=== PATIENT | female | born 1990 ===

== ENCOUNTER → 2020-03-24 | Outpatient (CLI) | payer OTHER ==
[2020-03-25 22:08] LABS: CHLAMYDIA TRACHOMATIS, NAA Negative (Negative); NEISSERIA GONORRHOEAE, NAA Negative (Negative)
== END | disposition home or self-care (01) ==
LOC: LAB 15:03 → LAB SHORT 15:03
PROVIDERS: Obstetrics & Gynecology
DX: Z34.01 Encounter for supervision of normal first pregnancy, first trimester (principal)
CPT/HCPCS: 87491; 87591

== ENCOUNTER → 2020-10-31 | Outpatient (CLI) | payer OTHER ==
[~2020-10-31] MED LIST: IBUP800 PO; PRENATAL TABLE1 EAC2; [UNRECOGNIZED DRUG - OTHER] PO
== END ==
LOC: LAB SHORT 16:12
DX: O26.93 Pregnancy related conditions, unspecified, third trimester (principal); Z3A.36 36 weeks gestation of pregnancy
CPT/HCPCS: 87081; 87150

== ENCOUNTER 2020-11-22 11:40 | Inpatient (IN) | payer OTHER ==
[~2020-11-22] VITALS: Ht 162.6 cm; Wt 89.9 kg
[2020-11-22] MEDS ORDERED: [UNRECOGNIZED DRUG - OTHER] PO (12:37)
[2020-11-22] MEDS ORDERED: PRENATAL TABLE1 EAC2 (12:37)
[2020-11-22 12:45] LABS: BASOPHILS ABSOLUTE AUTO 0.02 K/mm3 (0.00-0.23); BASOPHILS PERCENT AUTO 0 % (0-2); EOSINOPHILS ABSOLUTE AUTO 0.09 K/mm3 (0.00-0.68); EOSINOPHILS PERCENT AUTO 1 % (0-6); Hematocrit 39.1 % (33.0-51.0); Hemoglobin 13.2 g/dL (11.5-16.0); IMMATURE GRAN ABSOLUTE AUTO 0.03 K/mm3 (0.00-0.10); IMMATURE GRAN PERCENT AUTO 0 % (0-1); LYMPHOCYTES PERCENT AUTO 17 % (21-46); MONOCYTES ABSOLUTE AUTO 0.62 K/mm3 (0.16-1.47); MONOCYTES PERCENT AUTO 6 % (4-13); Mean Corpuscular HGB 28.2 pg (26.0-34.0); Mean Corpuscular HGB Conc 33.8 g/dL (31.5-36.5); Mean Corpuscular Volume 84 fL (80-100); Mean Platelet Volume 9.5 fL (9.1-12.4); NEUTROPHILS ABSOLUTE AUTO 7.86 K/mm3 (1.96-9.15); NEUTROPHILS PERCENT AUTO 76 % (41-73); Platelet Count 270 K/mm3 (150-400); RDW Coefficient Variation 13.8 % (11.7-14.2); RDW Standard Deviation 42.2 fL (35.1-46.3); Red Blood Cell Count 4.68 M/mm3 (3.80-5.20); White Blood Cell Count 10.32 K/mm3 (4.00-11.30)
[2020-11-22 12:59] LABS: Influenza A, PCR Negative (NEGATIVE); Influenza B, PCR Negative (NEGATIVE); Resp Syncytial Virus, PCR Negative (NEGATIVE); SARS-Cov-2 (COVID-19) PCR, MMC Negative (NEGATIVE)
[2020-11-22] MEDS ORDERED: IBUP800 PO (17:19)
[2020-11-23 05:17] LABS: BASOPHILS ABSOLUTE AUTO 0.02 K/mm3 (0.00-0.23); BASOPHILS PERCENT AUTO 0 % (0-2); EOSINOPHILS PERCENT AUTO 0 % (0-6); Hematocrit 34.3 % (33.0-51.0); Hemoglobin 11.6 g/dL (11.5-16.0); IMMATURE GRAN PERCENT AUTO 1 % (0-1); LYMPHOCYTES ABSOLUTE AUTO 1.53 K/mm3 (0.84-5.20); LYMPHOCYTES PERCENT AUTO 9 % (21-46); MONOCYTES ABSOLUTE AUTO 1.06 K/mm3 (0.16-1.47); MONOCYTES PERCENT AUTO 6 % (4-13); Mean Corpuscular HGB 28.6 pg (26.0-34.0); Mean Corpuscular HGB Conc 33.8 g/dL (31.5-36.5); Mean Corpuscular Volume 85 fL (80-100); Mean Platelet Volume 9.6 fL (9.1-12.4); NEUTROPHILS PERCENT AUTO 85 % (41-73); Platelet Count 230 K/mm3 (150-400); RDW Coefficient Variation 13.9 % (11.7-14.2); RDW Standard Deviation 42.6 fL (35.1-46.3); Red Blood Cell Count 4.05 M/mm3 (3.80-5.20); White Blood Cell Count 18.01 K/mm3 (4.00-11.30)
--- NOTE | 2020-11-23 09:22 | NUR ---
RN/POLLO ROUNDED TO HELP W/ . NB IS ALERT AND WAKE, NOT SHOWING INTEREST IN FEEDING. NB WILL LATCH FOR A FEW SECONDS AND QUICKLY STOPS. ORAL ASSESSMENT; FRENULUM UNDER TOUNGE IS THICK, WHEN NB STICKS OUT TONGUE IT DIPS IN AT THE TIP AND LOOKS LIKE A HEART. NB IS ABLE TO ELEVATE TONGUE TO ROOF OF MOUTH, STRETCH OVER LOWER GUM LINE, AND MOVE SIDE TO SIDE. INSTRUCT/DEMO CORRECT POSITIONING AND LATCHING. INSTRUCT/DEMO ORAL EXERCISES TO HELP COORDINATE SUCK. WILL ROUND AGAIN TODAY. INSTRUCTED ON FREQUENCY OF LATCHING, SUPPLY/DEMAND SYSTEM OF BREASTMILK. INSTRUCT/DEMO HAND EXPRESSION OF COLOSTRUM. REPORT GIVEN TO FLOOR RN. INSTRUCTED RN TO HAVE PT START PUMPING TO HELP BRING IN MILK SUPPLY.
--- NOTE | 2020-11-23 16:15 | NUR ---
RN/LC ROUNDED TO HELP W/ . NB CONTINUES TO FEED POOR TO FAIR. INSTRUCT/DEMO PUMP USE AND SETTINGS. INSTRUCTED ON FREQUENCY OF PUMPING.
--- NOTE | 2020-11-24 09:09 | NUR ---
DR. GARCIA NOTIFIED OF WBCS. NO NEW ORDERS AT THIS TIME. WILL DISCHARGE TODAY.
--- NOTE | 2020-11-24 10:01 | NUR ---
DISCHARGE EDUCATED MOTHER AND FATHER OF MATERNAL + DISCHARGE TEACHING AND BOTH VERBALIZED AN UNDERSTANDING. NO HARD RX WRITTEN TO GIVE TO PARENTS. PPFU CARD GIVEN TO MOTHER. PARENTS GATHERING ALL PERSONAL BELONGINGS AT THIS TIME.
== END 2020-11-24 10:48 | disposition home or self-care (01) | DRG 807 ==
LOC: OBS 11:40 → BC 11:46 → OBS 12:05 → BC 12:07
PROVIDERS: ADMIT Obstetrics & Gynecology
PROC: 10E0XZZ Delivery of Products of Conception, External Approach (ICD-10-PCS; principal; 2020-11-22)
PROC: 0HQ9XZZ Repair Perineum Skin, External Approach (ICD-10-PCS; 2020-11-22)
PROC: 00HU33Z Insertion of Infusion Device into Spinal Canal, Percutaneous Approach (ICD-10-PCS; 2020-11-22)
PROC: 3E0R3BZ Introduction of Anesthetic Agent into Spinal Canal, Percutaneous Approach (ICD-10-PCS; 2020-11-22)
DX: O24.429 Gestational diabetes mellitus in childbirth, unspecified control (principal); Z37.0 Single live birth; O70.0 First degree perineal laceration during delivery; Z3A.39 39 weeks gestation of pregnancy; Z20.822 Contact with and (suspected) exposure to COVID-19
CPT/HCPCS: 0241U; 36415; 51702; 82947; 85025; 86850; 86900; 86901; A9270; J1885; J2001; J2590; J3010; J7120